=== PATIENT | male | born 1980 | race Caucasian/White ===

== ENCOUNTER 2016-07-02 16:50 | Day surgery (SDC) | payer OTHER ==
[~2016-07-02] VITALS: Ht 185.4 cm; Wt 91.6 kg
[2016-07-02] MEDS ORDERED: ONDANSETRON 4MG/2ML VIAL (J2405) IV ONE ×2 (21:00→23:15)
[2016-07-02] MEDS ORDERED: MORPHINE 4 MG/ML 1ML SYRINGE IV ONE (21:00)
[2016-07-02] MEDS ORDERED: NS 1,000 ML IV ONE (21:00)
[2016-07-02 21:39] LABS: BASO % 0.3 % (0.0-1.0); EOS # 0.1 K/mm3 (0.0-0.50); EOS % 0.9 % (0.0-3.0); LARGE UNSTAINED CELL # 0.1 K/mm3 (0.0-0.4); LARGE UNSTAINED CELL % 0.8 % (0.0-4.0); LYMPH # 2.1 K/mm3 (1.5-4.5); LYMPH % 14.6 % (24.0-44.0); MEAN CORPUSCULAR HEMOGLOBIN 29.6 pg (27.0-33.0); MEAN CORPUSCULAR HGB CONC 34.4 g/dl (32.0-36.5); MONO # 0.8 K/mm3 (0.0-0.8); MONO % 5.8 % (0.0-5.0); NEUTROPHILS # 10.5 K/mm3 (1.8-7.7); NEUTROPHILS % 77.4 % (36.0-66.0); PLATELET COUNT, AUTOMATED 211 k/mm3 (150-450); RED CELL DISTRIBUTION WIDTH 11.8 % (11.5-14.5); WHITE BLOOD COUNT 13.6 K/mm3 (4.0-10.0)
[2016-07-02 21:58] LABS: ALBUMIN 4.6 GM/DL (3.2-5.2); ALBUMIN/GLOBULIN RATIO 1.35 (1.00-1.93); ALKALINE PHOSPHATASE 94 U/L (45-117); ALT/SGPT 45 U/L (12-78); AMYLASE 49 U/L (25-115); ANION GAP 10 MEQ/L (8-16); AST/SGOT 28 U/L (15-37); BILIRUBIN,DIRECT 0.4 MG/DL (0.0-0.2); BILIRUBIN,TOTAL 1.4 MG/DL (0.2-1.0); BLOOD UREA NITROGEN 14 MG/DL (7-18); CALCIUM LEVEL 9.6 MG/DL (8.5-10.1); CARBON DIOXIDE LEVEL 28 MEQ/L (21-32); CHLORIDE LEVEL 99 MEQ/L (98-107); CREATININE FOR GFR 1.14 MG/DL (0.70-1.30); GLOMERULAR FILTRATION RATE > 60.0 (>60); GLUCOSE, FASTING 107 MG/DL (70-105); POTASSIUM SERUM 3.8 MEQ/L (3.5-5.1); SODIUM LEVEL 137 MEQ/L (136-145)
--- NOTE | 2016-07-02 22:40 | REPUSA ---
CLINICAL HISTORY: Abdominal pain. TECHNIQUE: Realtime sonographic images were obtained in multiple projections. COMMENTS: The liver is of normal size, parenchyma demonstrates normal echogenicity. No discrete hepatic mass is seen. There is no intra or extrahepatic biliary ductal dilatation. CBD measures 4 mm. The gallbladder is p hysiologically distended without evidence of calculi. The gallbladder wall is not thickened and there is no pericholecystic fluid. Several gallbladder polyps are noted. There is no abdominal ascites. The right kidney measures , free of hydronephrosis. IMPRESSION: Several gallbladder polyps. Thank you for your kind referral of this patient.
[2016-07-02] MEDS ORDERED: MORPHINE 2 MG/ML 1ML SYRINGE IV ONE (23:15)
[2016-07-02] MEDS ORDERED: ONDANSETRON 4 MG ORAL DISINTEGRATING TAB (S0181) PO ONE (23:15)
[2016-07-03] MEDS ORDERED: ISOVUE-370 76% 100ML VIAL (Q9967) As Ordered ONE (00:47)
[2016-07-03] MEDS ORDERED: MORPHINE 2 MG/ML 1ML SYRINGE IV ONE (02:15)
--- NOTE | 2016-07-03 02:20 | REPUSA ---
CLINICAL HISTORY: Abdominal pain. TECHNIQUE: Multiple axial, sagittal and coronal CT images were obtained through the abdomen and pelvi s after administration of intravenous contrast material. COMMENTS: The liver is of uniform attenuation without mass or defect. There is no intra or extrahepatic biliary ductal dilatation. The spleen is normal. The gallbladder is within normal limits. The pancreas is of normal contour and attenuation characteristics. There is no evidence of adrenal mass. Both kidneys demonstrate prompt and equal nephrograms. The kidneys are normal in size, shape and conf iguration. There is no evidence of renal or ureteral mass. No renal or ureteral calculi are identifie d. There is no hydroureter or hydronephrosis. Inflammatory stranding is present in the right lower quadrant adjacent to appendix compatible with ac [place] appendicitis. There is no abscess or perforation noted. There is no bowel wall thickening. No e vidence for small or large bowel obstruction. There is no evidence of abdominal ascites or lymphadeno tish. There is no evidence of intrinsic or extrinsic bladder mass. There is no pelvic ascites or lymphadeno tish. Images of the lung bases show no evidence of pleural or parenchymal mass. There are no pleural effusi ons. The bony structures are free of lytic or blastic lesions. IMPRESSION: Acute appendicitis. The findings are being communicated to the ER department. Thank you for your kind referral of this patient.
[2016-07-03] MEDS ORDERED: PIPERACILLIN/TAZOBACTAM SOD 3.375 GM in D5W MINI-BAG PLUS 50 ML IV ONE (02:30)
[2016-07-03] MEDS ORDERED: BUPIVACAINE HCL 0.25% 30 ML VIAL As Ordered ONE (03:43)
[2016-07-03] MEDS ORDERED: MIDAZOLAM INJ 2 MG/2 ML VIAL (J2250) As Ordered ONE (03:44)
[2016-07-03] MEDS ORDERED: PROPOFOL 200 MG/20 ML VIAL As Ordered ONE (03:45)
[2016-07-03] MEDS ORDERED: LIDOCAINE 2% INJ 100 MG/5 ML SDV (FOR ANES.) As Ordered ONE (03:45)
[2016-07-03] MEDS ORDERED: ROCURONIUM BROMIDE 50 MG/5 ML VIAL As Ordered ONE (03:45)
[2016-07-03] MEDS ORDERED: fentaNYL 250 MCG/5 ML INJECTION (J3010) As Ordered ONE (03:45)
[2016-07-03] MEDS ORDERED: SUCCINYLCHOLINE 100 MG/5 ML SYRINGE (J0330) As Ordered ONE (03:45)
[2016-07-03] MEDS ORDERED: ONDANSETRON 4MG/2ML VIAL (J2405) As Ordered ONE (05:01)
[2016-07-03] MEDS ORDERED: GLYCOPYRROLATE INJ 0.2 MG/ML 2 ML VIAL As Ordered ONE (05:02)
[2016-07-03] MEDS ORDERED: KETOROLAC 60 MG/2 ML VIAL (J1885) As Ordered ONE (05:02)
[2016-07-03] MEDS ORDERED: NEOSTIGMINE 1MG/ML 5 ML SYRINGE (J2710) As Ordered ONE (05:02)
[2016-07-03 06:30] VITALS: BP 143/89
[2016-07-03] MEDS ORDERED: LR 1,000 ML IV SCH ×2 (06:30)
[2016-07-03] MEDS ORDERED: METOCLOPRAMIDE INJ 10MG/2ML VIAL (J2765) IV PRN (06:30)
[2016-07-03] MEDS ORDERED: ACETAMINOPHEN TAB 650MG DOSE (2X325MG) PO PRN (06:30)
[2016-07-03] MEDS ORDERED: ONDANSETRON 4MG/2ML VIAL (J2405) IV PRN (06:30)
[2016-07-03] MEDS ORDERED: KETOROLAC 30 MG/ML VIAL (J1885) IV PRN (06:30)
[2016-07-03] MEDS ORDERED: NORCO, ANEXSIA 5/325MG TABLET (HYDROcodone/ACETAMINOPHEN) PO PRN (06:30)
[2016-07-03] MEDS ORDERED: PERCOCET 5MG/325MG TAB PO PRN (06:30)
[2016-07-03] MEDS ORDERED: fentaNYL 100 MCG/2 ML INJECTION (J3010) IV PRN (06:30)
[2016-07-03] MEDS ORDERED: MORPHINE 2 MG/ML 1ML SYRINGE IV PRN ×2 (06:30)
[2016-07-03 07:00] VITALS: BP 178/98
[2016-07-03] MEDS: NORCO, ANEXSIA 5/325MG TABLET (HYDROcodone/ACETAMINOPHEN) PO PRN ×2 (09:24→13:30)
[2016-07-03 12:00] VITALS: BP 128/75
[2016-07-03] MEDS ORDERED: NORCOTAB PO (16:53)
--- NOTE | 2016-07-05 07:51 | RO ---
DATE OF PROCEDURE: 07/03/2016 PREOPERATIVE DIAGNOSIS: Appendicitis. POSTOPERATIVE DIAGNOSIS: Acute appendicitis. PROCEDURE PERFORMED: Laparoscopic appendectomy. SURGEON: Marcos Mary MD ANESTHESIA: General. INDICATIONS FOR THE PROCEDURE: Patient is a 35-year-old man who presented to the emergency department with a history of some mid abdominal pain. This had waxed and waned somewhat for a few days. Eventually it became more pronounced in the right lower abdomen. He was seen in the emergency department where he was found to have a slight elevation of his white blood cell count. A CT scan was obtained, which was consistent with acute appendicitis. I was consulted and the patient is now for a laparoscopic appendectomy. DESCRIPTION OF PROCEDURE: The patient was placed under general endotracheal anesthesia. The patient's abdomen was prepped and draped in a sterile fashion. 0.25% Marcaine was infiltrated at each of the trocar sites. A short supraumbilical midline incision was made and a Heavenly cannula was inserted. The abdomen was insufflated with carbon dioxide. Inspection revealed normal-appearing small and large bowel. The liver appeared normal. The patient was tilted to a Trendelenburg position and rolled to the left. A 5 mm trocar was placed low in the midline and a second 5 mm trocar was placed in the left lower quadrant. Graspers were inserted. The cecum was rolled medially with the terminal ileum. A short but definitely inflamed appendix was identified just inferior to the cecum. There were a few filmy adhesions, which were broken apart bluntly. The appendix was grasped. Its attachments laterally were divided using the hook cautery. The mesoappendix was divided using the cautery down to the base of the appendix. The appendix was then stapled at its base with a green load of the linear cutter endoscopic 45 stapler. The appendix was placed in an Endopouch. The right lower quadrant was irrigated and inspected. There was no sign of any residual contamination and there was no bleeding. The patient was returned to a flat position. The abdomen was deflated and the trocars were removed. The appendix was recovered through the Heavenly site. The fascia at the Heavenly site was closed with #2-0 Vicryl. The skin incisions were all closed with buried Vicryl sutures and Steri-Strips. Light dressings were applied. The patient tolerated the procedure well without apparent complication. He was awakened in the operating room, extubated and moved to the recovery room in stable condition. KARINA
== END 2016-07-03 17:05 | disposition home or self-care (01) ==
LOC: M ED 16:50 → M OROP 16:51 → M ED 19:42 → M OROP 07-03 03:28 → M ED 07-03 03:50 → M OROP 07-03 06:38 → M PED 07-03 06:38 → M OROP 07-03 17:05 → M PED 07-03 17:05
PROVIDERS: ATTEND Surgery
DX: K35.89 Other acute appendicitis (principal); F17.210 Nicotine dependence, cigarettes, uncomplicated
CPT/HCPCS: 44970; 74177; 76705; 80048; 80076; 81001; 82150; 83690; 85025; 88304; 93041; 96375; 96376; 99284; J0330; J1885; J2250; J2405; J2543; J2710; J3010; Q9967

== ENCOUNTER 2017-12-31 23:35 | Emergency (ER) | payer SELFPAY, OTHER ==
[2018-01-01] MEDS ORDERED: PROPOFOL 200 MG/20 ML VIAL As Ordered (00:19)
[2018-01-01] MEDS: PROPOFOL 200 MG/20 ML VIAL IV (00:40)
[2018-01-01] MEDS: ceFAZolin 1GM INJ (J0690 PER 500MG) IM (00:45)
== END 2018-01-01 01:01 | disposition home or self-care (01) ==
LOC: M ED 23:35
DX: S90.851A Superficial foreign body, right foot, initial encounter (principal); W22.8XXA Striking against or struck by other objects, initial encounter; Y92.410 Unspecified street and highway as the place of occurrence of the external cause
CPT/HCPCS: J0690

== ENCOUNTER 2025-03-01 08:53 | Emergency (ER) | payer MEDICAID, OTHER, SELFPAY ==
[~2025-03-01] VITALS: Ht 188 cm; Wt 93.2 kg
[~2025-03-01 08:53] MED LIST: HYDR-3715 PO; KEFL500C17 PO
[2025-03-01] MEDS ORDERED: nyquil (09:00)
[2025-03-01 09:30] LABS: KETONE, URINE AUTO RFX NEGATIVE (NEGATIVE); LEUKOCYTE ESTERASE UR AUTO RFX NEGATIVE (NEGATIVE); NITRITE, URINE AUTO RFX NEGATIVE (NEGATIVE); RBC, URINE AUTO RFX 0 /HPF (0-3); SQUAM EPITHELIAL CELL UR AURFX 0 /HPF (0-6); WBC, URINE AUTO RFX 0 /HPF (0-3)
[2025-03-01] MEDS: ACETAMINOPHEN *IV* 1,000 MG in IV 1 EA IV ONE (11:20)
[2025-03-01] MEDS: LIDOCAINE 5% PATCH TD ONE (11:20)
[2025-03-01] MEDS: KETOROLAC 30 MG/ML 1 ML VIAL IV ONE (11:20)
[2025-03-01 11:32] LABS: BASO # 0.0 10^3/uL (0.0-0.2); BASO % 0.0 % (0.0-1.0); EOS # 0.0 10^3/uL (0.0-0.5); EOS % 0.0 % (0.0-3.0); LYMPH # 0.4 10^3/uL (1.5-5.0); LYMPH % 7.2 % (24.0-44.0); MONO # 0.2 10^3/uL (0.0-0.8); MONO % 4.6 % (2.0-8.0); NEUTROPHILS # 4.5 10^3/uL (1.5-8.5); NEUTROPHILS % 87.8 % (36.0-66.0); PLATELET COUNT, AUTOMATED 167 10^3/uL (150-450)
[2025-03-01 11:55] LABS: CALCIUM LEVEL 9.0 MG/DL (8.5-10.1); CARBON DIOXIDE LEVEL 28.0 MMOL/L (20-31); CHLORIDE LEVEL 101.0 MMOL/L (98-107); CREATININE FOR GFR 1.06 MG/DL (0.70-1.30); GLOMERULAR FILTRATION RATE 89.9 (>60); POTASSIUM SERUM 4.9 MMOL/L (3.5-5.1); SODIUM LEVEL 137.0 MMOL/L (136-145)
[2025-03-01] MEDS ORDERED: KETO-204 PO (11:58)
[2025-03-01 12:11] VITALS: BP 111/73; TEMP 99.4; O2SAT 98
== END 2025-03-01 12:15 | disposition home or self-care (01) ==
LOC: M ED 08:53
DX: M51.86 Other intervertebral disc disorders, lumbar region (principal); I10 Essential (primary) hypertension; M51.44 Schmorl's nodes, thoracic region; M25.78 Osteophyte, vertebrae
CPT/HCPCS: 71046; 72128; 72131; 80048; 81001; 85025; 87486; 87581; 87633; 87798; 96374; 96375; 99284; J0134; J1885